=== PATIENT | female | born 1985 | race Caucasian/White ===

== ENCOUNTER 2020-12-03 10:19 | Emergency (ER) | payer SELFPAY ==
[~2020-12-03] VITALS: Ht 154.9 cm; Wt 95.5 kg
[~2020-12-03 10:19] MED LIST: IBU800 M1 PO; NO HOME MEDICATIONS; PRILOSEC 20MG20 MG PO; TYLENOL 500MG500 MG PO
[2020-12-03] MEDS ORDERED: NAPROSYN500 MG PO (11:21)
[2020-12-03 11:39] VITALS: BP 120/70; PULSE 71; TEMP 97.5
== END 2020-12-03 11:39 | disposition home or self-care (01) ==
LOC: COL.ER 10:19
DX: M77.8 Other enthesopathies, not elsewhere classified (principal); F17.210 Nicotine dependence, cigarettes, uncomplicated

== ENCOUNTER 2021-03-02 13:39 | Emergency (ER) | payer SELFPAY ==
[~2021-03-02] VITALS: Ht 160 cm; Wt 90.9 kg
[~2021-03-02 13:39] MED LIST changes: +NAPROSYN500 MG PO
[2021-03-02 13:51] VITALS: BP 118/76; TEMP 98.2
[2021-03-02 14:10] VITALS: PULSE 67
== END 2021-03-02 14:10 | disposition home or self-care (01) ==
LOC: COL.ER 13:39
DX: N89.8 Other specified noninflammatory disorders of vagina (principal); F17.210 Nicotine dependence, cigarettes, uncomplicated